=== PATIENT | female | born 1985 | race Caucasian/White ===

== ENCOUNTER 2019-02-18 12:44 | Emergency (ER) | payer SELFPAY ==
[2019-02-18 12:56] VITALS: BP 119/78; PULSE 17; RESP 20; TEMP 37.2; O2SAT 96
--- NOTE | 2019-02-18 12:57 | ED.FEMALEGU ---
HPI - Female Genitourinary General Chief complaint: STATUS CONTROLLER Stated complaint: Gyno Source: patient Mode of arrival: ambulatory Limitations: no limitations History of Present Illness HPI Narrative: 33 y.o. c/o vaginal burning with d.c., onset yesterday. Sex. active, 2 partners over 3 months. Condoms with one partner. Otherwise not using control. LMP 02/11, previous menses 01/21. Pt. is unable to smell. Continues to have perioral rash tx. with augmentin and mupiricin one week ago. RAsh onset about 3 weeks ago. Dx. with impetigo. Hx of recurrent bacterial vaginosis, none x 9 months. MD elicited complaint: dysuria (x 1 day. ) Possible : unsure if Date of Last Menstrual Period: 02/11/19 Expected Date of Delivery: 01/28/19 Related Data Allergies Allergy/AdvReac Type Severity Reaction Status Date / Time Sulfa (Sulfonamide Allergy Mild Rash Verified 02/11/19 18:29 Antibiotics) propoxyphene Allergy Rash Verified 02/11/19 18:29 [From [facility]N 100] Review of Systems Constitutional: Constitutional: Reports no additional constitutional complaints Gastrointestinal: Gastrointestinal: Denies abdominal pain Genitourinary: Genitourinary: Reports no additional female genitourinary complaints Neurologic: Comments: papular upper and lower lip and left ala nasi rash with sparing of the area around the lips. Exam Const: General: no acute distress : General: Yes bladder normal to palpation External Female Exam: normal external appearance Speculum Exam - Vagina: normal appearance of the vagina, normal vaginal discharge and No vaginal bleeding Speculum Exam - Cervix: normal appearance of the cervix and closed cervix Bimanual exam- vagina & uterus: no cervical motion tenderness Bimanual Exam- Adnexa, other: no adnexal masses, adnexal tenderness, adnexae non-tender and no masses noted OB/external & speculum: no herpetic lesions Skin: Other: papular rash on upper and lower lips and left ala nasi with periorbital clearing Course Vital Signs Vital signs: Vital Signs Temperature 37.2 C 02/18/19 12:56 Pulse Rate 17 L 02/18/19 12:56 Respiratory Rate 20 02/18/19 12:56 Blood Pressure 119/78 12/29/19 12:56 Pulse Oximetry 96 02/18/19 12:56 Temperature 37.2 C 02/18/19 12:56 Pulse Rate 17 L 02/18/19 12:56 Respiratory Rate 16 02/18/19 14:34 Blood Pressure 119/78 02/18/19 12:56 Pulse Oximetry 96 02/18/19 12:56 MDM - Female Genitourinary MDM Narrative Medical decision making narrative: No evidence of trich, B.V. or fungal vaginitis. Facial rash c/w periroal dermatitis. Vag. symptoms may improve off Augmentin. Reminded to always use condoms. Pt. will observe her rash. See PCP the first of Mar, when she has insurance, if it persists. Pt. has info on p.d. Differential Diagnosis Differential diagnosis: Likely urinary tract infection, bacterial vaginosis, trichomoniasis, cervicitis, vaginitis and other Lab Data Attestation: I reviewed the patient's lab results. Lab results narrative: negative UA, HCG, and ISSAC/trich/clue cells. Labs: Lab Results 02/18/19 02/18/19 02/18/19 Range/Units 13:29 14:09 14:09 Urine Color Yellow (Yellow) Urine Appearance Clear (Clear) Urine pH 5.5 (5.0-8.0) Ur Specific [place] >= 1.030 H > 1.030 (1.010-1.020) Urine Protein Negative (Negative) Urine Glucose (UA) Negative (Negative) Urine Ketones Trace H (Negative) Ur Blood (Man) Negative (Negative) Urine Nitrate Negative (Negative) Urine Bilirubin 1+ H (Negative) Urine Urobilinogen 0.2 (0.2-1.0) mg/dL Ur Leukocyte Esterase Negative (Negative) Urine RBC None seen (0-2) /hpf Urine WBC None seen (0-3) /hpf Ur Squamous Epith Cells Few (Few) /hpf Urine Bacteria Trace (None) /hpf Urine Mucus Few H /lpf Urine Test Negative C.trachomatis RNA (TMA) Pending N.gonorrhoeae RNA (TMA)
--- NOTE | 2019-02-18 13:42 | PC.NURSE ---
LAB ORDERS SHOULD REFLECT A BACTERIAL SWAB FOR BACTERIAL VAGINOSIS, GC/CHLAMYDIA, AND WET PREP FOR TRICHOMONAS
[2019-02-18 14:15] LABS: Appearance Urine Clear (Clear); Bilirubin Urine 1+ (Negative); Blood Urine Negative (Negative); Color Urine Yellow (Yellow); Glucose Urine UA Negative (Negative); Ketones Urine Trace (Negative); Leukocyte Esterase Ur Negative (Negative); Nitrate Urine Negative (Negative); Protein Urine Negative (Negative); Specific Grav Ur >= 1.030 (1.010-1.020); Urobilinogen Urine 0.2 mg/dL (0.2-1.0); pH Urine 5.5 (5.0-8.0)
[2019-02-18 14:16] LABS: Pregnancy On Board Control POS; Urine Pregnancy Test Negative
[2019-02-18 14:17] LABS: Specific Gravity Ur > 1.030 (1.010-1.035)
[2019-02-18 14:20] LABS: Add Urine Microscopic? YES; RBC Urine None seen /hpf (0-2); WBC Urine None seen /hpf (0-3)
[2019-02-18 14:21] LABS: Bacteria Urine Trace /hpf; Mucus Urine Few /lpf; Squamous Epithelial Cell Urine Few /hpf (Few)
[2019-02-18 14:34] VITALS: RESP 16
== END 2019-02-18 14:38 | disposition home or self-care (01) ==
PROVIDERS: Emergency Provider Family Medicine
DX: R10.2 Pelvic and perineal pain (principal); L71.0 Perioral dermatitis
CPT/HCPCS: 81001; 81025; 87070; 87210; 87491; 87591; 99282; 99284

== ENCOUNTER 2019-04-08 09:19 | Emergency (ER) | payer OTHER, SELFPAY ==
[2019-04-08 09:49] VITALS: BP 127/79; PULSE 81; RESP 20; TEMP 36.6; O2SAT 99
--- NOTE | 2019-04-08 09:55 | ED.URI ---
HPI - URI/Sore Throat General Chief Complaint: Headache Stated Complaint: Possible Flu Time Seen by Provider: 04/08/19 09:55 Source: patient Mode of arrival: ambulatory Limitations: no limitations History of Present Illness HPI Narrative: 33-year-old woman comes in today complaining of 2 days of headache, frontal sinus pressure, green nasal drainage and nasal congestion. She states that she has had no fever, cough, shortness of breath or vomiting. One of her children was recently diagnosed with influenza. She states that is very unlikely that she is . She declined a urine test. MD elicited complaint: rhinorrhea, nasal congestion and sinus pain Onset (ago): day(s) (2) Consistency: constant Severity: moderate Description of mucous: green Able to tolerate fluids by mouth: Yes Relieving factors: nothing Context: sick contacts Associated symptoms: rhinorrhea and nasal congestion Related Data Allergies Allergy/AdvReac Type Severity Reaction Status Date / Time Sulfa (Sulfonamide Allergy Mild Rash Verified 02/11/19 18:29 Antibiotics) propoxyphene Allergy Rash Verified 02/11/19 18:29 [From [facility]-N 100] Review of Systems Constitutional: Constitutional: Denies chills, Denies fever(s) and Denies weakness Eyes: Eyes: Denies change in vision and Denies photophobia ENT: Reports as per HPI, Denies dysphagia, Denies epistaxis and Denies sore throat Cardiovascular: Cardiovascular: Denies chest pain and Denies radiating jaw, neck or arm pain Respiratory: Respiratory: Denies cough, Denies dyspnea and Denies wheezing Gastrointestinal: Gastrointestinal: Denies abdominal pain, Denies diarrhea, Denies nausea and Denies vomiting Musculoskeletal: Musculoskeletal: Denies joint swelling and Denies muscle cramps Integumentary/Breasts: Skin/Breast: Denies pruritus, Denies erythema and Denies rash Neurologic: Denies vertigo, Denies syncope and Denies focal weakness Psychiatric: Psychiatric: Denies anxiety and Denies depression Endocrine: Endocrine: Denies polydipsia and Denies polyuria Allergic/Immunologic: Allergic/Immunologic: Denies lip swelling and Denies wheezing PMFSH Past Medical History Medical History (Updated 04/08/19 @ 10:30 by Gian Diaz MD) No active medical problems Surgical History Surgical History (Updated 04/08/19 @ 10:01 by Gian Diaz MD) H/O hernia repair H/O left wrist surgery S/P cholecystectomy Social History Social History Smoking status: Current every day smoker Substance use: never Living arrangements: with family Exam Const: General: healthy appearing, no acute distress and alert Orientation/consciousness: patient oriented x3 HENMT: Ears: external ears normal, TM's normal bilaterally and EAC's normal Mouth: Yes Normal oral and palatal mucosa present and Yes moist mucous membranes Throat: posterior oropharynx normal and uvula midline Eyes: Conjunctivae: conjunctivae normal Pupils: Equal, round and reactive pupils present EOM: EOMs intact bilaterally Resp: Effort & Inspection: normal respiratory effort and not labored Auscultation: clear to auscultation bilaterally, no rales, no rhonchi and no wheezes Cardio: Rate: regular rate Rhythm: regular rhythm Heart sounds: no murmurs Skin: General skin exam: normal color, no jaundice and no pallor Rashes: no rashes Neuro: General: patient oriented x3, moves all extremities, no focal motor deficits and CN's II-XI intact bilaterally Extrem: General: normal to inspection and no clubbing, cyanosis or edema Psych: Appearance: grossly normal and well kempt Mental Status: mental status grossly normal Affect: normal affect Attitude: cooperative Thought content: Yes Normal thought content present Course Vital Signs Vital signs: Vital Signs Temperature 36.6 C 04/08/19 09:49 Pulse Rate 81 04/08/19 09:49 Respiratory Rate 20 03/24
[2019-04-08 10:24] LABS: Influenza Control Valid (Valid)
--- NOTE | 2019-04-08 10:29 | PC.NURSE ---
Report given to Yamilet Garcia
[2019-04-08 10:36] VITALS: BP 126/76; PULSE 87; RESP 20; O2SAT 97
== END 2019-04-08 10:37 | disposition home or self-care (01) ==
PROVIDERS: Emergency Provider Emergency Medicine; PCP Family Medicine
DX: J01.90 Acute sinusitis, unspecified (principal); F17.200 Nicotine dependence, unspecified, uncomplicated
CPT/HCPCS: 87804; 99283

== ENCOUNTER 2024-06-10 09:44 | Emergency (ER) | payer OTHER, SELFPAY ==
[2024-06-10 09:45] VITALS: BP 124/90; PULSE 102; RESP 18; TEMP 36.3; O2SAT 100
--- OUTSIDE RECORDS SUMMARY | 2024-06-10 09:46 | XMS_ITS | Clinical Summary ---
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 Gender Identity Female 2023 1:41 PM CDT Sexual Orientation Choose not to disclose 2023 1:41 PM CDT Plan of Treatment Health Maintenance Due Date Last Done Comments Cervical Cancer Screening Pa p Smear (Age 30 to 64) Every 3 Years 1983 Annual Physical 11/30/1986 Hepatitis C 11/30/2001 DTaP, Tdap and Td Vaccines ( 1 - Tdap) 11/30/2002 Hepatitis B Vaccines (1 of 3 - 19+ 3-dose series) 11/30/2002 Cervical Cancer Screening Pa p with HPV Testing (Age 30 to 64) Every 5 Years 11/30/2013 Cervical Cancer Screening with HPV 11/30/2013 COVID-19 Vaccine (2023-2 5 season) 2023 Mammogram Screening 2023 HPV Vaccines Aged Out No longer eligi ble based on patient's age to complete this topic Meningococcal B Vaccine Aged Out No l onger eligible based on patient's age to complete this topic Meningococcal Vaccine Aged Out No neda merle eligible based on patient's age to complete this topic Pneumococcal Vaccine: Pediat rics (0 to 5 Years) and At-Risk Patients (6 to 49 Years) Aged Out No longer eligible b ased on patient's age to complete this topic RSV Immunizations Under 20 Months Aged Out No longer eligible based on patient's age to complete this topic
--- OUTSIDE RECORDS SUMMARY | 2024-06-10 09:46 | XMS_ITS | Encounter Summary ---
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
--- NOTE | 2024-06-10 09:48 | ED.DENTAL ---
HPI - Dental/Oral General Chief complaint: Dental/Oral Stated complaint: dental pain Time Seen by Provider: 06/10/24 09:48 Source: patient Mode of arrival: ambulatory History of Present Illness HPI Narrative: right upper and right lower dental pain for months. Last time was seen by a dentist 2 years ago, she is telling me that 2 of the dental filling fell out. Weeks ago Patient denies any fever, chills, headache, trouble swallowing or breathing Location: Tooth # ( right upper 3., right lower number 29) Related Data Allergies Allergy/AdvReac Type Severity Reaction Status Date / Time Sulfa (Sulfonamide Allergy Mild Rash Verified 06/10/24 09:45 Antibiotics) propoxyphene (From Allergy Rash Verified 06/10/24 09:45 Darvocet-N 100) [facility] Past Medical History Medical History (Updated 06/10/24 @ 09:49 by Katty Foy MD) No active medical problems Surgical History Surgical History (Updated 04/08/19 @ 10:01 by Gian DiazMD) H/O left wrist surgery H/O hernia repair S/P cholecystectomy Social History Social History Smoking status: Current every day smoker Substance use: never Living arrangements: with family Exam Narrative: General appearance: Well-developed, well-nourished Skin: Normal color Head: Normocephalic, nontraumatic Eyes: Clear conjunctiva ENT: right upper and right lower dental decay Neck: Supple, nontender V Neurologic: Alert and oriented ?3, BRIDGE CLUB MANAGER is normal as tested, no gross motor deficit MDM - Dental/Oral Differential Diagnosis Differential diagnosis: Likely dental caries, toothache and fracture of tooth Critical Care Time Critical Care Time Critical Care Time: No Discharge Plan Discharge Clinical Impression: Dental caries Patient Disposition: Home Condition: Stable Instructions: Antibiotic Form, Toothache (ED) Additional Instructions: call your dentist as soon as possible for appointment Patient Language: Uruguayan Prescriptions: New clindamycin HCl [Cleocin HCl] 150 mg capsule 450 mg PO Q8H Qty: 30 0RF ibuprofen [Motrin IB] 200 mg capsule 800 mg PO Q8H PRN (Reason: pain) Qty: 20 0RF No Action alprazolam [Xanax] 0.5 mg tablet 0.5 mg PO BID PRN (Reason: anxiety) Qty: 20 0RF amoxicillin-pot clavulanate [Augmentin XR] 1,000-62.5 mg tablet extended release 12 hr 2 tablet PO Q12H Qty: 40 0RF Follow-up/Referrals: UNKNOWN,DOCTOR [Primary Care Provider] - Stand Alone Forms: Work/School Release IP
== END 2024-06-10 10:00 | disposition home or self-care (01) ==
PROVIDERS: Emergency Provider Emergency Medicine
DX: K02.9 Dental caries, unspecified (principal); F17.210 Nicotine dependence, cigarettes, uncomplicated
CPT/HCPCS: 99283

== ENCOUNTER 2024-09-12 11:32 | Emergency (ER) | payer OTHER, SELFPAY ==
[2024-09-12 11:32] VITALS: BP 155/97; PULSE 89; RESP 18; TEMP 36.1; O2SAT 99
--- OUTSIDE RECORDS SUMMARY | 2024-09-12 11:39 | XMS_ITS | Encounter Summary ---
Author Organization [facility] Address [address] [place] [address] Care Team Providers Care Wildlife Conservation Officer Name Role Phone Unavailable Primary Care Provider Unavailabl e Encounter Details Date Type Department Care Team (Late st Contact Info) Description 07/29/2018 Abstract SFL CONVERSION [address] [place] [address] , Generic Conversion, Social History Tobacco Use Types Packs/Day Years Used Date Smoking Tobacco: Never Assessed Comments Unknown Sex and Gender Information Value Date Recorded Sex Assigned at Female 2023 1:41 PM CDT 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
--- OUTSIDE RECORDS SUMMARY | 2024-09-12 11:39 | XMS_ITS | Continuity of Care Document ---
Author Organization [facility] Address [address] [place] [address] Phone Care Team Providers Care Principal Examiner Name Role Phone Ruddy Catalan MD Unavailable Unavailable Allergies, Adverse Reactions, Alerts Substance Reaction Status Criticality PROPOXYPHENE NAPSYLATE Active No In formation acetaminophen Active No Information naproxen Active No Information Medications Medication Instructions Dosage Effective Dates (start - stop) Status Comments Flexeril 10 mg tablet take 1 tablet by o ral route 2 times every day - Active Procedures Procedure Date Office/outpatient visit,[facility], [facility] [place] Shoulder Xray Complete Min Of 2 Views De AC Joints Xray Bilateral W Or WO Weighte d Distraction Office consultation, [facility] 4 Advance Directives Directive Yes / No Effective Date File Name No Information Encounters Encounter Description Practice Location Reason(s) For Visit Diagnoses Date Provider Providers Copied on Encounter Office/outpat ient visit,est, mod [facility], [address] [place] [address], [id number], tel:[phone] ROLANDA Hall shoulder (chief complaint) shoulder (chief complaint) AnxietyPain In Shoulder Joint [address], [place], [id number] , [place]. tel: [phone] Office consultation, [facility], [address] [place] [address], [id number], tel:[phone] ROLANDA Hall shoulder (chief complaint) Pain In Shoulder JointPain in joint involving shoulder regionImpingment Syndrome [address], [place], [id number] , [place]. tel: [phone] Family History Family Member Type Diagnosis Age At Onset Mother Problem (finding) hypertension Mother Problem (finding) glaucoma Payers Payer name Insurance type Covered green party ID Anthony viramontes(s) [employer] [facility] [id number] Social History Type Description Quantity Date Captured Comments Alcohol Use Details Caffeine Use Details Tobacco Use Status Smoking Status Current every day smoker Non-Smoking Tobacco Use Details : No Details Available : No Details Available Sex Female Vital Signs Date / Time: Height Weight BMI Pulse Rate Blood Pressure Temperature Respiratory Rate Body Surface Area Head Circumference Head Circ. Percentile Wt./Doroteo. Percentile BMI percentile Pulse Ox Inhaled Ox 11:57 AM 65.00 in 62.142 kg (137.00 lbs) 22.8 0 kg/m eter (2) Chief Complaint And Reason For Visit From encounter dated '03/08/2014 11:10'. shoulder (chief complaint) shoulder (chief complaint) Reason For Referral Reason For Referral No Information Plan Of Treatment Date Type Action Status Future Order: Radiology Order Sh oulder Xray Complete Min Of 2 Views ([id number]), Ordered on: Ordered Future Order: Radiology Order AC Joints Xray Bilateral W Or WO Weighted Distraction ([id number]), Ordered on: Ordered History Of Present Illness Encounter Date Complaint History Of Prese nt Illness shoulder shoulder Functional Status Date Functional Assessmen t No Information Instructions Date Instruction Additional Infor mation Patient was educated on the diagnosis and treatment plan. Related to Pain In Shoulder Joint Patient was educated on the diagnosis and treatment plan. Related to Pain In Shoulder Joint Assessments Type Assessment Date assessment Anxiety assessment Pain In Shoulder Joint 15 Patient Care Teams Name Effective Dates (start - stop) Status Members No Information
--- OUTSIDE RECORDS SUMMARY | 2024-09-12 11:39 | XMS_ITS | Patient Health Record ---
Author Organization [facility] Address [address] [place] [address] [place] [address] Care Team Providers Care Automation Technologist Name Role Phone Luisa Balderas M.D. Unav ailable Reason For Referral No Information Medications Medication SIG (Take, Route, Frequency, Duration) Notes Start Date End Date Status Paxil 20 MG 0 Oral -Med Status:Filled Rx, DrugStatusKelsiNakul -Cielo- , 04/01/2014 Active Omeprazole 20 MG 30 Oral Twice daily TAKE 1 CAPS ULE TWICE DAILY-Med Status:Filled Rx, DrugStatus-ShannonNakul -RxAngie-Martín Rodriguez 04/10/2014 Active Xanax 0.5 MG 0 Oral -Med Status:Filled Rx, DrugStatusKelsiNakul -Cielo- , 04/01/2014 Active Promethazine-DM 6.25-15 MG/5ML 0 Oral 1-2 tsp po q 8 hours-Med Status:Filled Rx, DrugStatusNakul Dolan,Call ie 04/01/2014 Active Azithromycin 250 MG 0 Oral TAKE 2 TABLE TS ON DAY 1 THEN TAKE 1 TABLET A DAY FOR 4 DAYS.-Med Status:Filled Rx DrugStatusNakul Dolan,Call ie 04/01/2014 Active Ativan 0.5 MG 0 Oral -Med Status:Filled Rx, DrugStatus-NNakul -Cielo- , 04/01/2014 Active Loestrin 1.5/30 (21) 1.5-30 MG-MCG 30 Oral Daily TAKE 1 TABLET DAILY.-Med Status:Filled Rx, DrugStatus-N,Nakul -UyEk-Ifcczk-Uod oudJuan Pabloa 01/03/2014 Active Problems Problem Type SNOMED Code ICD Code Onset Dates Problem Status W/U Status Risk Notes Problem Meningococcal infectious disease (disorder) (51525911) Meningococcal () 01/05/20 14 Active confirmed Nakul Problem Herpes simplex viral infection (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) Herpesviral infection, unspecified (B00.9) 02/27/19 15 Active confirmed Nakul Problem Anxiety disorder (819801644) Anxiety disorder, unspecified (F41.9) 04/10/19 15 Active confirmed Nakul Problem Carpal tunnel syndrome (78874471) Carpal tunnel syndrome, unspecified upper limb (G56.00) 02/27/19 15 Active confirmed Nakul Problem Acute bronchitis (16252936) Acute bronchitis, unspecified (J20.9) 04/01/19 15 Active confirmed Nakul Problem Gastro-esophageal reflux disease without esophagitis (986505923) Gastro-esophagea l reflux disease without esophagitis (K21.9) 04/10/19 15 Active confirmed Nakul Problem Dyshidrosis [pompholyx] (L30.1) 02/27/19 15 Active confirmed Nakul Problem Pain of right shoulder region (finding) (6866891887) Pain in right shoulder (M25.511) 02/27/19 15 Active confirmed Nakul Problem Cervicalgia (94598601) Cervicalgia (M54.2) 01/04/20 14 Active confirmed Nakul Problem Mass of shoulder region (180487223) Other shoulder lesions, right shoulder (M75.81) 01/04/20 14 Active confirmed Nakul Problem Chest pain (97278040) Other chest pain (R07.89) 02/27/19 15 Active confirmed Nakul Problem Dysuria (74859905) Dysuria (R30.0) 12/26/19 14 Active confirmed Nakul Problem Headache (76540257) Headache (R51) 01/04/20 14 Active confirmed Nakul Problem Adult health examination (046344857) Encounter for general adult medical examination without abnormal findings (Z00.00) 01/04/20 14 Active confirmed Nakul Problem Encounter for symptom (991170859) Encounter for screening for other disorder (Z13.89) 01/04/20 14 Active confirmed Nakul Problem Vaccination given (730960758) Encounter for immunization (Z23) 01/04/20 14 Active confirmed Nakul Problem Surveillance of contraception (506829768) Encounter for contraceptive management, unspecified (Z30.9) 01/04/20 14 Active confirmed Nakul Problem Tobacco use (684152183) Tobacco use (Z72.0) 01/04/20 14 Active confirmed Nakul Problem Family history of cancer (073975281) Family history of malignant neoplasm, unspecified (Z80.9) 12/04/19 14 Active confirmed Nakul Problem Family history of ischemic heart disease (975597421) Family history of ischemic heart disease and other diseases of the circulatory system (Z82.49) 12/04/19 14 Active confirmed Nakul Problem Acute upper respiratory infection (47851303) Acute upper respiratory infection, unspecified (J06.9) 01/05/20 14 Resolved confirmed Nakul Problem Acute vaginitis (99399079) Acute vaginitis (N76.0) 02/27/19 15 Resolved confirmed Nakul Problem Chest pain (61434843) Chest pain, unspecified (R07.9) 12/26/19 14 Resolved confirmed Nakul Problem Closed fracture of left forearm (1349208442386885 5) Unspecified fracture of left forearm, initial encounter for closed fracture (S52.92XA) 01/05/20 14 Resolved confirmed Naukl Problem Injury (880307380) Other injury of unspecified body region (T14.8) 12/26/19 14 Resolved confirmed Nakul Plan Of Treatment No Information Medical (General) History Surgical History Surgery Date(Month/Year) Hernia Repair 12/03/2013
--- OUTSIDE RECORDS SUMMARY | 2024-09-12 11:39 | XMS_ITS | Clinical Summary ---
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
--- OUTSIDE RECORDS SUMMARY | 2024-09-12 11:39 | XMS_ITS | Patient Health Record ---
Author Organization [facility] Internal Medicine, [facility] Address [address] [place] [address] Care Team Providers Care Web Content Specialist Name Role Phone Mirtha Eteinne Unavailable [phone] Reason For Referral No Information Medications Medication SIG (Take, Route, Frequency, Duration) Notes Start Date End Date Status Amoxicillin 500 MG 1 capsule Orally damaris ry 12 hrs for 10 day(s) 03/18/2018 Active metroNIDAZOLE 500 MG 1 tablet Orally Twi ce a day for 07 days 03/18/2018 Active Sprintec 28 0.25-35 MG-MCG 1 tablet Oral ly Once a day Active Social History Tobacco Use: Social History Observation Description Date Details (start date - stop date) Current Smoker NA - NA Tobacco Use/Smoking Question Answer Notes Smoking Status current smoker Alcohol Screen Question Answer Notes Did you have a drink containing alcohol in the p ast year? No Points 0 Interpretation Negative Problems No Known Problems Plan Of Treatment No Information Medical (General) History Surgical History Surgery Date(Month/Year) cholecystectomy lft wrist
--- NOTE | 2024-09-12 11:42 | ED.DENTAL ---
HPI - Dental/Oral General Chief complaint: Dental/Oral Stated complaint: tooth pain Time Seen by Provider: 09/12/24 11:41 Source: patient Mode of arrival: ambulatory Limitations: no limitations History of Present Illness HPI Narrative: 38-year-old female with anxiety presents to the ED with -- right and lower jaw /dental the past few months. She is unable to schedule an appointment with the dentist. No fever or chills. MD Complaint: tooth pain ( 31, 4) Onset (ago): month(s) Duration: constant Severity: severe Relieving factors: nothing Exacerbating factors: nothing Context: history of dental caries Treatment prior to arrival: none Related Data Allergies Allergy/AdvReac Type Severity Reaction Status Date / Time Sulfa (Sulfonamide Allergy Mild Rash Verified 09/12/24 12:05 Antibiotics) propoxyphene (From Allergy Rash Verified 09/12/24 12:05 Darvocet-N 100) Review of Systems Review of Systems: All systems reviewed & are unremarkable except as noted in HPI and below PMFSH Past Medical History Medical History No active medical problems Surgical History Surgical History H/O left wrist surgery H/O hernia repair S/P cholecystectomy Social History Social History Smoking status: Current every day smoker Substance use: never Living arrangements: with family Exam Narrative: vitals are stable. Const: General: no acute distress Orientation/consciousness: patient oriented x3 Limitations: no limitations HENMT: Head: normal to inspection Ears: external ears normal Face/Nose/Sinus: Normal external nose present Face and sinus: normal facial exam Teeth and gingiva: dentition normal (4-- crown is missing. Root leuks carious) and abnormal tooth and associated gingiva ( Multiple caries/ missing teeth. [id number] is fractured/ carious.) Throat: posterior oropharynx normal Eyes: Conjunctivae: conjunctivae normal Pupils: Equal, round and reactive pupils present EOM: EOMs intact bilaterally Direct Ophthalmoscopy: no photophobia Neck: Neck: normal visual inspection, no lymphadenopathy and no meningeal signs Chest: Chest palpation & inspection: normal inspection of the chest Resp: Effort & Inspection: normal respiratory effort Auscultation: clear to auscultation bilaterally Cardio: Rate: regular rate Rhythm: regular rhythm GI: Auscultation: normal bowel sounds Other: no tenderness/ rigidity /rebound. : General: Yes no CVA tenderness Back/Spine/Pelvis: Back: no CVA tenderness Skin: General skin exam: normal color Rashes: no rashes Wounds: no wounds Neuro: General: patient oriented x3, moves all extremities, no meningeal signs, no focal motor deficits and CN's II-XI intact bilaterally Cranial nerves: Yes Nystagmus not present Speech: normal speech Gait exam (Neuro): Normal gait present Extrem: General: normal to inspection and no clubbing, cyanosis or edema Psych: Mental Status: mental status grossly normal Affect: normal affect Attitude: cooperative Course Course Emergency Course: Dental caries dental pain fracture and caries of number 31 missing crown over phone 4. Vital Signs Vital signs: Vital Signs Temperature 36.1 C L 09/12/24 11:32 Pulse Rate 89 09/12/24 11:32 Respiratory Rate 18 09/12/24 11:32 Blood Pressure 155/97 H 09/12/24 11:32 Pulse Oximetry 99 09/12/24 11:32 Oxygen Delivery Room Air 09/12/24 11:32 Temperature 36.1 C L 09/12/24 11:32 Pulse Rate 89 09/12/24 11:32 Respiratory Rate 18 09/12/24 11:32 Blood Pressure 155/97 H 09/12/24 11:32 Pulse Oximetry 99 09/12/24 11:32 Oxygen Delivery Room Air 09/12/24 11:32 MDM - Dental/Oral MDM Narrative Medical decision making narrative: Dental pain dental caries Differential Diagnosis Differential diagnosis: Likely gingival abscess, toothache and dental abscess Medical Records Attestation: I reviewed the patient's medical records. Lab Data Attestation: I reviewed the patient's lab results. Discharge Plan Discharge Clinical Impression: Pain, dental, Dental caries Patient Disposition: Home Condition: Stable Instructions: Antibiotic Form, Dental Abscess (ED), Toothache (ED) Patient Language: Luxembourgish Prescriptions: New amoxicillin-pot clavulanate 875-125 mg tablet 1 tablet PO Q12H Qty: 14 0RF diclofenac sodium 50 mg tablet,delayed release (DR/EC) 50 mg PO Q12H PRN (Reason: pain) Qty: 20 0RF No Action alprazolam [Xanax] 0.5 mg tablet 0.5 mg PO BID PRN (Reason: anxiety) Qty: 20 0RF amoxicillin-pot clavulanate [Augmentin XR] 1,000-62.5 mg tablet extended release 12 hr 2 tablet PO Q12H Qty: 40 0RF clindamycin HCl [Cleocin HCl] 150 mg capsule 450 mg PO Q8H Qty: 30 0RF ibuprofen [Motrin IB] 200 mg capsule 800 mg PO Q8H PRN (Reason: pain) Qty: 20 0RF clindamycin HCl [Cleocin HCl] 150 mg capsule 450 mg PO Q8H 10 Days Qty: 90 0RF ibuprofen 800 mg tablet 800 mg PO TID PRN (Reason: pain) Qty: 20 0RF Follow-up/Referrals: Jerrod,MD Lauro [Primary Care Provider] - Stand Alone Forms: Work/School Release IP Time of Disposition: 11:59
--- OUTSIDE RECORDS SUMMARY | 2024-09-12 12:05 | XMS_ITS | Encounter Summary ---
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
--- OUTSIDE RECORDS SUMMARY | 2024-09-12 12:05 | XMS_ITS | Clinical Summary ---
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
--- OUTSIDE RECORDS SUMMARY | 2024-09-12 12:05 | XMS_ITS | Continuity of Care Document ---
Author Organization [facility] Address [address] [place] [address] Phone Care Team Providers Care Actuarial Consultant Name Role Phone Ruddy Catalan MD Unavailable Unavailable Allergies, Adverse Reactions, Alerts Substance Reaction Status Criticality PROPOXYPHENE NAPSYLATE Active No In formation acetaminophen Active No Information naproxen Active No Information Medications Medication Instructions Dosage Effective Dates (start - stop) Status Comments Flexeril 10 mg tablet take 1 tablet by o ral route 2 times every day - Active Procedures Procedure Date Office[facility]outpatient [facility] 2014 Shoulder Xray Complete Min Of 2 Views De AC Joints Xray Bilateral W Or WO Weighte d Distraction Office consultation, [facility] 4 Advance Directives Directive Yes / No Effective Date File Name No Information Encounters Encounter Description Practice Location Reason(s) For Visit Diagnoses Date Provider Providers Copied on Encounter Office/outpat ient visit,est, mod [facility] [place], [address] [place] [address], [id number], tel:[phone] ROLANDA Hall shoulder (chief complaint) shoulder (chief complaint) AnxietyPain In Shoulder Joint [address] [place], [place], [id number] , [place]. tel: [phone] Office consultation, [facility], [address] [place] [address], [id number], tel:[phone] ROLANDA Hall shoulder (chief complaint) Pain In Shoulder JointPain in joint involving shoulder regionImpingment Syndrome [address] [place], [place], [id number] , [place]. tel: [phone] Family History Family Member Type Diagnosis Age At Onset Mother Problem (finding) hypertension Mother Problem (finding) glaucoma Payers Payer name Insurance type Covered democrat ID Anthony viramontes(s) [employer] [facility] [id number] Social History Type Description Quantity Date Captured [...] oulder Xray Complete Min Of 2 Views ([id number]), Ordered on: Ordered Future Order: Radiology Order AC Joints Xray Bilateral W Or WO Weighted Distraction ([id number]), Ordered on: Ordered History Of Present Illness [...]
== END 2024-09-12 12:17 | disposition home or self-care (01) ==
PROVIDERS: Emergency Provider Internal Medicine Critical Care Medicine; PCP Family Medicine
DX: K02.9 Dental caries, unspecified (principal); F17.200 Nicotine dependence, unspecified, uncomplicated
CPT/HCPCS: 99283

== ENCOUNTER 2024-10-09 11:29 | Emergency (ER) | payer OTHER, SELFPAY ==
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
[2024-10-09 11:45] VITALS: BP 134/88; PULSE 88; RESP 16; TEMP 36.4; O2SAT 99
--- OUTSIDE RECORDS SUMMARY | 2024-10-09 12:01 | XMS_ITS | Encounter Summary ---
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
--- OUTSIDE RECORDS SUMMARY | 2024-10-09 12:01 | XMS_ITS | Patient Health Record ---
Author Organization [facility] Internal Medicine, [facility] Address [address] [place] [address] Care Team Providers Care Tier In Name Role Phone Mirtha Etienne Unavailable [phone] Reason For Referral No Information Medications Medication [...]
--- OUTSIDE RECORDS SUMMARY | 2024-10-09 12:01 | XMS_ITS | Clinical Summary ---
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
== END 2024-10-09 12:33 | disposition home or self-care (01) ==
PROVIDERS: Emergency Provider Emergency Medicine; PCP Family Medicine
DX: S00.83XA Contusion of other part of head, initial encounter (principal); F17.200 Nicotine dependence, unspecified, uncomplicated; Y04.2XXA Assault by strike against or bumped into by another person, initial encounter
CPT/HCPCS: 70450; 70486; 99284